=== PATIENT | male | born 1960 | race Caucasian/White ===

== ENCOUNTER 2022-01-05 08:57 | Emergency (ER) | payer MEDICARE, OTHER ==
[~2022-01-05 08:57] MED LIST: ALFUZOSIN HCL E10 MG PO; ARTHRITIS PAIN100 GM TOP; ASPIRIN325 MG PO; LOVAZA1 GM PO; MELOXICAM15 MG PO; MINIPRESS2 MG PO; NEURONTIN300 MG PO; OXYCODONE HCL10 MG PO; OXYCODONE HCL15 MG PO; PERCOCET 5/3251 TAB PO; PRILOSEC20 MG PO; PROZAC20 MG PO; TERAZOSIN HCL10 MG PO; TIZANIDINE HCL4 MG PO; TRAZODONE 100M100 MG PO; VOLTAREN100 GM TOP; XARELTO10 MG PO
== END 2022-01-05 10:56 | disposition home or self-care (01) ==
LOC: FER 08:57
DX: S20.211A Contusion of right front wall of thorax, initial encounter (principal); F17.210 Nicotine dependence, cigarettes, uncomplicated; E11.9 Type 2 diabetes mellitus without complications; I10 Essential (primary) hypertension; Z88.2 Allergy status to sulfonamides; W19.XXXA Unspecified fall, initial encounter; Y92.009 Unspecified place in unspecified non-institutional (private) residence as the place of occurrence of the external cause
CPT/HCPCS: 71101